=== PATIENT | male | born 2000 | race Caucasian/White ===

== ENCOUNTER 2024-05-08 01:47 | Emergency (ER) | payer SELFPAY ==
[~2024-05-08] VITALS: Ht 165.1 cm; Wt 83.0 kg
[2024-05-08 02:20] VITALS: BP 136/97; PULSE 88; RESP 18; TEMP 98.4; O2SAT 100
[2024-05-08] MEDS ORDERED: IBUP-2029 MT (04:43)
[2024-05-08] MEDS ORDERED: HYDR-4001 MT (04:43)
[2024-05-08] MEDS: CYCLOBENZAPRINE 10MG TABLET PO ONE (04:45)
[2024-05-08] MEDS: KETOROLAC 30MG/ML VIAL IM ONE (04:45)
[2024-05-08] MEDS: KETOROLAC 30MG/ML VIAL IM NR (05:00)
[2024-05-08] MEDS: CYCLOBENZAPRINE 10MG TABLET PO NR (05:00)
== END 2024-05-08 06:34 | disposition home or self-care (01) ==
LOC: ER 01:47
DX: S42.101A Fracture of unspecified part of scapula, right shoulder, initial encounter for closed fracture (principal); V87.8XXA Person injured in other specified noncollision transport accidents involving motor vehicle (traffic), initial encounter; Y93.55 Activity, bike riding; Y92.89 Other specified places as the place of occurrence of the external cause; Y99.8 Other external cause status
CPT/HCPCS: 73030; 99283; A4565